=== PATIENT | female | born 1975 | race African-American/Black ===

== ENCOUNTER 2019-04-13 10:19 | Emergency (ER) | payer OTHER ==
[~2019-04-13] VITALS: Ht 182.9 cm; Wt 86.6 kg
[~2019-04-13 10:19] MED LIST: CARISOPRODOL 3350 MG PO; CLEOCIN HCL150 MG PO; CYCLOBENZAPRINE5 MG PO; IBUPROFEN 600600 M1 PO; MEDROLDOSEPACK PO; MULTIVITAMINS1 EAC7 PO; NOHOMEMEDICATIONS; ULTRAM 50MG TAB50 MG PO
[2019-04-13 10:51] LABS: URINE BILIRUBIN NEGATIVE (Negative); URINE BLOOD 3+ (Negative); URINE CLARITY CLOUDY; URINE GLUCOSE-RANDOM* NEGATIVE (Negative); URINE KETONES NEGATIVE (Negative); URINE LEUKOCYTES-REFLEX TRACE (Negative); URINE NITRITE-REFLEX NEGATIVE (Negative); URINE PROTEIN (DIPSTICK) TRACE (Negative); URINE SPECIFIC GRAVITY 1.025 (1.005-1.035); URINE UROBILINOGEN 0.2 E.U./dl (0.2-1.0)
[2019-04-13 10:52] LABS: URINE COLOR PINK
[2019-04-13 10:56] LABS: HEMATOCRIT 43.5 % (37.0-47.0); HEMOGLOBIN 14.4 gm/dL (12.0-15.0); MCH 29.7 pg (26.0-34.0); MCHC 33.2 g/dL (28.0-37.0); MCV 89.6 fL (80.0-100.0); PLATELET COUNT 174 thou/uL (150-400); RBC 4.85 mil/uL (4.20-5.00); RDW 14.8 % (10.5-14.5); WBC 2.9 thou/uL (4.0-11.0)
[2019-04-13 11:00] LABS: CASTS None Seen /LPF (None Seen); CRYSTALS None Seen /LPF (None Seen); SQUAMOUS 0-3 Few /LPF (0-3)
[2019-04-13 11:01] LABS: BACTERIA-REFLEX 1-9 Few /HPF (None Seen); URINE RBC >20 Many /HPF (0-2); URINE WBC-REFLEX 0-5 Rare /HPF (0-5)
[2019-04-13 11:05] LABS: CALCIUM 9.5 mg/dL (8.5-10.1); CREATININE 0.9 mg/dL (0.6-1.0); POTASSIUM 3.8 mmol/L (3.5-5.1)
[2019-04-13 11:11] LABS: TOTAL BILIRUBIN 0.4 mg/dL (<0.1-1.0); TOTAL PROTEIN 8.1 g/dL (6.4-8.2)
[2019-04-13 11:47] LABS: ABSOLUTE NEUTROPHILS 1.3 thou/uL (1.4-8.2)
[2019-04-13 11:48] LABS: ANISOCYTOSIS SLIGHT
[2019-04-13] MEDS ORDERED: NORCO 10-325 T1 EACH PO ×2 (14:08→14:10)
[2019-04-13 14:11] VITALS: BP 123/69
== END 2019-04-13 14:17 | disposition home or self-care (01) ==
LOC: ER 10:19
PROVIDERS: Physician Assistant
DX: D25.9 Leiomyoma of uterus, unspecified (principal); N93.9 Abnormal uterine and vaginal bleeding, unspecified; R10.30 Lower abdominal pain, unspecified; F17.210 Nicotine dependence, cigarettes, uncomplicated; G43.909 Migraine, unspecified, not intractable, without status migrainosus; Z88.5 Allergy status to narcotic agent; Z88.0 Allergy status to penicillin; Z90.49 Acquired absence of other specified parts of digestive tract